=== PATIENT | male | born 1990 | race Caucasian/White ===

== ENCOUNTER 2017-01-01 19:58 | Emergency (ER) | payer OTHER ==
[2017-01-01] MEDS ORDERED: Lidocaine 1% 20 ML MDV INJECT ONE (20:22)
[2017-01-01] MEDS ORDERED: Bupivacaine 0.5% 10 ML SDV INJECT ONE (20:22)
--- NOTE | 2017-01-01 20:22 | EDM.PDOC ---
ED HPI GENERAL MEDICAL PROBLEM - General Chief Complaint: Laceration Stated Complaint: laceration Time Seen by Provider: 01/01/17 20:15 Source of Information: Reports: Patient History Limitations: Reports: No Limitations - History of Present Illness INITIAL COMMENTS - FREE TEXT/NARRATIVE: This patient is a 26 year old male that presents to the ER. Patient reports that he was cutting a potato when he cut his left 2nd finger with a knife. Patient denies any other injuries. Pulses +2, cap refill <2 sec, sensory/motor function intact. Neurovascular intact. Onset: Today Location: Reports: Upper Extremity, Left Front/Back Body Image: 1 - laceration Quality: Reports: Throbbing Severity: Mild Improves with: Reports: None Worsens with: Reports: None Associated Symptoms: Denies: Confusion, Chest Pain, Cough, cough w sputum, Diaphoresis, Fever/Chills, Headaches, Loss of Appetite, Malaise, Nausea/Vomiting , Rash, Seizure, Shortness of Breath, Syncope, Weakness Left 3-Middle finger Pain Score (Numeric/FACES): 4 - Related Data Allergies Allergy/AdvReac Type Severity Reaction Status Date / Time No Known Allergies Allergy Verified 01/01/17 19:59 Home Meds: Home Meds . [No Known Home Meds] 01/01/17 [History] Past Medical History Gastrointestinal History: Reports: GERD Musculoskeletal History: Reports: Fracture Neurological History: Reports: Concussion - Infectious Disease History Infectious Disease History: Reports: Chicken Pox - Past Surgical History GI Surgical History: Reports: Appendectomy Musculoskeletal Surgical History: Reports: ORIF Social & Family History - Family History Family Medical History: Noncontributory - Tobacco Use Smoking Status *Q: Never Smoker - Recreational Drug Use Recreational Drug Use: No ED ROS GENERAL - Review of Systems Review Of Systems: See Below Constitutional: Reports: No Symptoms HEENT: Reports: No Symptoms Respiratory: Reports: No Symptoms Cardiovascular: Reports: No Symptoms Endocrine: Reports: No Symptoms GI/Abdominal: Reports: No Symptoms : Reports: No Symptoms Musculoskeletal: Reports: No Symptoms Skin: Reports: Wound (laceration left 2nd digit finger) Neurological: Reports: No Symptoms Psychiatric: Reports: No Symptoms Hematologic/Lymphatic: Reports: No Symptoms Immunologic: Reports: No Symptoms ED EXAM, SKIN/RASH Exam: See Below Exam Limited By: No Limitations General Appearance: Alert, WD/WN, No Apparent Distress Respiratory/Chest: No Respiratory Distress Cardiovascular: Normal Peripheral Pulses Peripheral Pulses: 2+: Radial (L), Radial (R) Extremities: Normal Range of Motion, No Pedal Edema, Normal Capillary Refill, Other (laceration left 2nd digit. ) Neurological: Alert, Oriented Psychiatric: Normal Affect, Normal Mood Skin: Warm, Dry, Normal Color, No Rash, Wound/Incision (left 2nd digit finger. ) ED SKIN PROCEDURES - Laceration/Wound Repair Left Finger Lac/Wound length In cm: 2.2 Appearance: Superficial Distal NVT: Neuro & Vascular Intact, No Tendon Injury Anesthetic Type: Digital Local Anesthesia - Lidocaine (Xylocaine): 1% Plain Local Anesthesia - Bupivicaine (Marcaine): 0.5% Plain Local Anesthetic Volume: 3cc Skin Prep: Chlorhexidine (Hibiciens) Saline Irrigation (cc's): 100 Exploration/Debridement/Repair: Wound Explored, In a Bloodless Field (after torniquette applied to digit. Using IV torniquette), Explored to Base, No Foreign Material Found Closed with: Sutures Suture Size: other (5-0) # of Sutures: 8 Suture Type: Nylon Tetanus Status Addressed: Yes Complications: Yes Complication Description: Patient had very tough skin, suture needle kept bending. There are no finger tourniquettes available in ER. Had to improvise with IV tourniquette. Bleeding semi controlled during suturing. Controlled after procedure completion. Course - Vital Signs Last Recorded V/S: Last Vital Signs Temp 98.5 F 01/01/17 19:59 Pulse 94 01/01/17 19:59 Resp 16 01/01/17 19:59 BP 156/100 H 01/01/17 19:59 Pulse Ox 97 01/01/17 19:59 - Orders/Labs/Meds Meds: Medications Discontinued Medications Generic Name Dose Route Start Last Admin Trade Name Freq PRN Reason Stop Dose Admin Bupivacaine HCl 10 ml 01/01/17 20:22 01/01/17 20:30 Sensorcaine-Mpf 0.5% INJECT 01/01/17 20:23 10 ml ONETIME ONE Administration Lidocaine HCl 20 ml 01/01/17 20:22 01/01/17 20:30 Xylocaine 1% INJECT 01/01/17 20:23 20 ml ONETIME ONE Administration Departure - Departure Time of Disposition: 21:38 Disposition: Home, Self-Care 01 Condition: Good Clinical Impression: Laceration of finger Qualifiers: Encounter type: initial encounter Finger: middle finger Damage to nail status: without damage Foreign body presence: without foreign body Laterality: left Qualified Code(s): S61.213A - Laceration without foreign body of left middle finger without damage to nail, initial encounter - Discharge Information Instructions: Laceration Care, Adult, [id number] Referrals: PCP,None [Primary Care Provider] - Forms: ED Department Discharge Additional Instructions: Followup with your primary care provider provider in about 7 days for suture removal Return to the ER for worsening of condition or any emergent concerns Wash the area gently with soap and water, rinse, inocencio dry, keep clean and dry. No use of the finger until sutures are removed. Tylenol or Motrin for pain - Assessment/Plan Plan: PLEASE SEE RN NOTE FOR PFSH.
== END 2017-01-01 20:45 | disposition home or self-care (01) ==
LOC: CC.ED 19:58
DX: S61.211A Laceration without foreign body of left index finger without damage to nail, initial encounter (principal); W26.0XXA Contact with knife, initial encounter
CPT/HCPCS: 12001; 99282